=== PATIENT | female | born 1995 | race Caucasian/White ===

== ENCOUNTER 2019-01-27 13:27 | Emergency (ER) | payer MEDICAID ==
[~2019-01-27] VITALS: Ht 152.4 cm; Wt 100.0 kg
[~2019-01-27 13:27] MED LIST: AZIT500T5 PO; LOPE1TAB46 PO; ONDA4TAB6 PO; PHEN-824 PO
[2019-01-27 13:33] VITALS: BP 138/86
[2019-01-27] MEDS ORDERED: ipratropium/albuterol 3ml nebule NEB ONE (15:05)
[2019-01-27] MEDS ORDERED: dexamethasone sod phosphate 10mg/ml inj PO STA (15:46)
== END 2019-01-27 16:02 | disposition home or self-care (01) ==
LOC: ER 13:28
DX: J02.8 Acute pharyngitis due to other specified organisms (principal); B97.89 Other viral agents as the cause of diseases classified elsewhere; J45.909 Unspecified asthma, uncomplicated; Z88.0 Allergy status to penicillin; Z79.2 Long term (current) use of antibiotics; Z79.899 Other long term (current) drug therapy
CPT/HCPCS: 87081; 87880; 94640; 94760; 99283; J1100

== ENCOUNTER 2019-08-10 11:22 | Emergency (ER) | payer MEDICAID ==
[~2019-08-10] VITALS: Ht 177.8 cm; Wt 125.3 kg
[~2019-08-10 11:22] MED LIST changes: -AZIT500T5 PO; +AZIT500T9 PO
[2019-08-10 12:37] LABS: URINE HCG NEGATIVE (NEG)
[2019-08-10 13:01] VITALS: BP 125/67
== END 2019-08-10 13:04 | disposition home or self-care (01) ==
LOC: ER 11:23
DX: R07.89 Other chest pain (principal); R11.0 Nausea; J45.909 Unspecified asthma, uncomplicated; Z88.0 Allergy status to penicillin; Z79.2 Long term (current) use of antibiotics; Z79.899 Other long term (current) drug therapy
CPT/HCPCS: 71045; 81025; 93005; 99284